=== PATIENT | male | born 1935 | race African-American/Black ===

== ENCOUNTER 2017-08-24 18:14 | Emergency (ER) | payer MEDICARE ==
[~2017-08-24] VITALS: Ht 182.9 cm; Wt 77.1 kg
[2017-08-24 18:25] VITALS: BP 139/72
[2017-08-24] MEDS ORDERED: Sodium Chloride 500ML 500 ML IV ONE (18:31)
[2017-08-24] MEDS ORDERED: Morphine Sulfate 4mg/ml Inj IVP ONE ×2 (19:00→21:15)
[2017-08-24 19:04] VITALS: BP 133/79
[2017-08-24] MEDS ORDERED: FAMOTIDINE40 MG ORAL (19:04)
[2017-08-24] MEDS ORDERED: LISINOPRIL1 GM MC (19:04)
[2017-08-24] MEDS ORDERED: MEGESTROL ACETAT5 GM MC (19:04)
[2017-08-24] MEDS ORDERED: ZOFRAN4 MG ORAL (19:04)
[2017-08-24] MEDS ORDERED: GABAPENTIN100 MG ORAL (19:04)
--- NOTE | 2017-08-24 19:08 | Emergency Room Report ---
History of Present Illness General Chief Complaint: Abdominal Pain Source: Patient, Family Member, EMS Present Illness HPI Patient initially comes in for complaints of vomiting or abdominal pain Patient's grandson is here as well Reports that the patient has also had diffuse pain Patient was also reported to have had a fall earlier Patient appeared to be weaker than usual unknown regarding fever patient himself is a Poor historian and grandson provide some history Patient points to the chest area down to the lower abdomen for the discomfort No reports of diarrhea History of present illness remains limited Allergies: Coded Allergies: No Known Allergies (Unverified , 08/24/17) Patient History Limited by: medical condition Past Medical History: see triage record Past Surgical History: unable to obtain Reviewed Nursing Documentation: PMH: Agreed; PSxH: Agreed Nursing Documentation-PMH Past Medical History: No History, Except For Review of Systems All Other Systems: limited - Other than the ones mentioned in the history of present illness all others are reviewed however they do stay limited due to the patient's mental status Physical Exam Vital Signs Date Time Temp Pulse Resp B/P (MAP) Pulse Ox O2 Delivery O2 Flow Rate FiO2 08/24/17 18:11 97.4 102 16 147/96 98 97.3 08/24/17 19:04 Room Air Sp02 EP Interpretation: reviewed, normal General Appearance: no apparent distress Head: normocephalic, atraumatic Eyes: bilateral eye PERRL ENT: normal pharynx, dry mucus membranes Neck: supple, thyroid normal Respiratory: crackles - Both lower lobes Cardiovascular #1: regular rate, rhythm, no edema Gastrointestinal: non tender, soft Musculoskeletal: normal inspection Neurologic: alert, responsive - However appears mildly confused Skin: other - Mild jaundice and pallor noted Medical Decision Making Diagnostic Impression: Primary Impression: MDS (myelodysplastic syndrome) Additional Impressions: Thrombocytopenia Chemotherapy adverse reaction ER Course Given the patient's presentation extensive blood work and imaging was initiated CT abdomen pelvis does not show any obvious acute pathology in discussion with [facility] physician Patient has history of MDS Previous white blood for count was 40,000 Previous platelets were 22,000 Patient also did have 10 bandemia Given the worsening symptoms patient is initiated on broad-spectrum antibiotic patient also has metastatic colon cancer Requiring further inpatient care Labs Test 08/24/17 19:16 White Blood Count 70.4 K/UL (4.8-10.8) Red Blood Count 2.62 M/UL (4.70-6.10) Hemoglobin 7.9 G/DL (14.2-18.0) Hematocrit 24.5 % (42.0-52.0) Mean Corpuscular Volume 94 FL (80-99) Mean Corpuscular Hemoglobin 30.4 PG (27.0-31.0) Mean Corpuscular Hemoglobin Concent 32.4 G/DL (32.0-36.0) Red Cell Distribution Width 18.2 % (11.6-14.8) Platelet Count 14 K/UL (150-450) Mean Platelet Volume 11.8 FL (6.5-10.1) Neutrophils (%) (Auto) % (45.0-75.0) Lymphocytes (%) (Auto) % (20.0-45.0) Monocytes (%) (Auto) % (1.0-10.0) Eosinophils (%) (Auto) % (0.0-3.0) Basophils (%) (Auto) % (0.0-2.0) Differential Total Cells Counted 100 Neutrophils % (Manual) 46 % (45-75) Lymphocytes % (Manual) 22 % (20-45) Monocytes % (Manual) 8 % (1-10) Eosinophils % (Manual) 0 % (0-3) Basophils % (Manual) 0 % (0-2) Band Neutrophils 24 % (0-8) Other Cell Type Platelet Estimate Decreased Platelet Morphology Normal Hypochromasia 1+ Anisocytosis 1+ Sodium Level 139 MMOL/L (136-145) Potassium Level 4.3 MMOL/L (3.5-5.1) Chloride Level 103 MMOL/L (98-107) Carbon Dioxide Level 24 MMOL/L (21-32) Anion Gap 12 mmol/L (5-15) Blood Urea Nitrogen 32 mg/dL (7-18) Creatinine 1.5 MG/DL (0.55-1.30) Estimat Glomerular Filtration Rate mL/min (>60) Glucose Level 149 MG/DL (74-106) Calcium Level 9.6 MG/DL (8.5-10.1) Total Bilirubin 0.8 MG/DL (0.2-1.0) Aspartate Amino Transf (AST/SGOT) 71 U/L (15-37) Alanine Aminotransferase (ALT/SGPT) 21 U/L (12-78) Alkaline Phosphatase 80 U/L (46-116) Total Creatine Kinase 373 U/L (26-308) Creatine Kinase MB < 0.5 NG/ML (0.0-3.6) Creatine Kinase MB Relative Index 0.1 Troponin I 0.059 ng/mL (0.000-0.056) Total Protein 8.8 G/DL (6.4-8.2) Albumin 3.9 G/DL (3.4-5.0) Globulin 4.9 g/dL Albumin/Globulin Ratio 0.8 (1.0-2.7) Lipase 56 U/L (73-393) Rhythm Strip Diag. Results EP Interpretation: yes Rate: 67 Rhythm: NSR, no PVC's, no ectopy Chest X-Ray Diagnostic Results Chest X-Ray Diagnostic Results : Chest X-Ray Ordered: Yes # of Views/Limited/Complete: 1 View Indication: Chest Pain EP Interpretation: Yes Interpretation: no consolidation, no effusion, no pneumothorax Impression: No acute disease Electronically Signed by: Brit Burr DO Other X-Ray Diagnostic Results Other X-Ray Diagnostic Results : X-Ray ordered: Right knee # of Views/Limited Vs Complete: 3 View Indication: Pain EP Interpretation: Yes Interpretation: no dislocation, no soft tissue swelling, no fractures Impression: No acute disease Electronically Signed by: Brit Burr DO CT/MRI/US Diagnostic Results CT/MRI/US Diagnostic Results : Impression CT abdomen pelvisImpression: Multiple liver masses, largest measuring 10.8 x 9.8 x 9 cm. Given the presence of calcifications some of these, these most likely represent metastatic neoplasm, likely adenocarcinoma. Multiple abscesses also a possibility but much less likely Other subcentimeter low-attenuation lesions are seen in the liver, too small to characterize 3.8 x 3.8 cm saccular infrarenal abdominal aortic aneurysm. No evidence of leakage or rupture Evidence of multiple prior surgeries, with evidence of abdominal wall hernia mesh repair and sigmoid resection Colonic diverticulosis. No evidence of diverticulitis Equivocal gastric antral wall thickening, most likely artifact of under distention. Gastritis, peptic ulcer disease, or neoplasm also possible The included lung bases demonstrate COPD changes. Nodular opacities most likely represent areas of scarring, although a few small groundglass opacities are nonspecific Prostatomegaly. 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
[2017-08-24 19:10] VITALS: BP 136/73
[2017-08-24 19:45] LABS: ANION GAP 12 mmol/L (5-15); BLOOD UREA NITROGEN 32 mg/dL (7-18); CALCIUM 9.6 MG/DL (8.5-10.1); CARBON DIOXIDE 24 MMOL/L (21-32); CHLORIDE 103 MMOL/L (98-107); CREATININE 1.5 MG/DL (0.55-1.30); HEMATOCRIT 24.5 % (42.0-52.0); HEMOGLOBIN 7.9 G/DL (14.2-18.0); MEAN CORPUSCULAR VOLUME 94 FL (80-99); PLATELET COUNT 14 K/UL (150-450); POTASSIUM 4.3 MMOL/L (3.5-5.1); RED BLOOD COUNT 2.62 M/UL (4.70-6.10); RED CELL DISTRIBUTION WIDTH 18.2 % (11.6-14.8); SODIUM 139 MMOL/L (136-145)
[2017-08-24] MEDS ORDERED: HYDROCODON-ACE1 EA15 ORAL (19:45)
[2017-08-24] MEDS ORDERED: LISINOPRIL40 MG ORAL (19:45)
[2017-08-24] MEDS ORDERED: MEGESTROL ACETA40 MG PO (19:46)
[2017-08-24 19:58] LABS: ALANINE AMINOTRANSFERASE 21 U/L (12-78); ALBUMIN 3.9 G/DL (3.4-5.0); ALBUMIN/GLOBULIN RATIO 0.8 (1.0-2.7); ALKALINE PHOSPHATASE 80 U/L (46-116); ASPARTATE AMINO TRANSFERASE 71 U/L (15-37); BILIRUBIN,TOTAL 0.8 MG/DL (0.2-1.0); CKMB < 0.5 NG/ML (0.0-3.6); CREATINE KINASE 373 U/L (26-308)
[2017-08-24 20:05] VITALS: BP 130/80
[2017-08-24 20:10] LABS: WHITE BLOOD COUNT 70.4 K/UL (4.8-10.8)
[2017-08-24] MEDS ORDERED: Piperacillin/Tazobactam 3.375 GM in NS 110 ML IVPB ONE (21:00)
[2017-08-24 23:03] VITALS: BP 131/67
[2017-08-25 03:18] VITALS: BP 131/67
--- NOTE | 2017-08-25 12:15 | Diagnostic Imaging Report ---
Indication: Nor bilateral abdominal pain x2 3 days with nausea and vomiting Technique: Spiral acquisitions obtained through the abdomen and pelvis. No oral contrast utilized, per emergency room physician request No IV contrast utilized, per referring physician request.. Multiplanar reconstructions were generated. Total dose length product 559.1 mGycm. CTDIvol(s) 10.65 mGy. Dose reduction achieved using automated exposure control Comparison: None Findings: In the inferior right hepatic lobe, there is a low-attenuation mass which measures 10.8 x 9.8 x 9 cm in diameter. This appears to extend to the liver surface. There is a capsular calcification at the inferior extent. A second smaller mass is immediately adjacent to the superolateral aspect of this, measures 2.2 cm in diameter, demonstrates some peripheral calcification. A third mass with calcifications is seen in the lateral dome of segment 7, measures 2.2 cm, but has a testicle of low-attenuation calcification extending medially. A fourth similar lesion is seen in the tip of segment 2 of the left hepatic lobe, measuring 3 x 4.6 cm. These are not optimally characterize, due to lack of IV contrast. Numerous subcentimeter low-attenuation lesions are also seen within the cephalad portions of the liver. These are not optimally characterized due to small size. Lack of IV contrast limits assessment of the solid organs. The gallbladder, bile ducts, pancreas are unremarkable. Spleen demonstrates numerous calcifications, consistent with old granulomatous disease. The adrenals are unremarkable. The kidneys demonstrate multiple cysts, as well as multiple subcentimeter low-attenuation lesions which are too small to characterize. No retroperitoneal or mesenteric mass or adenopathy. No pelvic mass or adenopathy. The prostate is somewhat enlarged, measuring 4.5 x 4.5 x 6.5 cm. The bladder is distended. There is a saccular infrarenal abdominal aortic aneurysm, which measures 3.8 x 3.8 cm, measures 4 cm in length. No evidence of leakage or rupture. There is colonic diverticulosis. There is evidence of prior sigmoid resection and anastomosis. The cecum is ectopically located anterior to the left hepatic lobe although there does not appear to be any volvulus. There is a portion of small bowel that is between the right hepatic lobe and the abdominal wall. No definite small bowel distention, however. The appendix is not definitely demonstrated, but no findings to suggest acute appendicitis are evident. There is evidence of prior anterior abdominal wall hernia mesh repair. No free or loculated intraperitoneal air or fluid is evident. The distal esophagus and duodenum are unremarkable. There is equivocal mild wall thickening of the gastric antrum, probably an artifact of under distention. There is a small fat-containing left inguinal hernia. The lung bases demonstrate some bronchiectasis, small bullae, and suggestion of hyperinflation as well as areas of scarring. Some nodular opacities are noted which most likely represent areas of scarring. A few small groundglass opacities are present bilaterally which are nonspecific. There is a small pericardial effusion. The bones demonstrate degenerative spondylosis changes. Impression: Multiple liver masses, largest measuring 10.8 x 9.8 x 9 cm. Given the presence of calcifications some of these, these most likely represent metastatic neoplasm, likely adenocarcinoma. Multiple abscesses also a possibility but much less likely Other subcentimeter low-attenuation lesions are seen in the liver, too small to characterize 3.8 x 3.8 cm saccular infrarenal abdominal aortic aneurysm. No evidence of leakage or rupture Evidence of multiple prior surgeries, with evidence of abdominal wall hernia mesh repair and sigmoid resection Colonic diverticulosis. No evidence of diverticulitis Equivocal gastric antral wall thickening, most likely artifact of under distention. Gastritis, peptic ulcer disease, or neoplasm also possible The included lung bases demonstrate COPD changes. Nodular opacities most likely represent areas of scarring, although a few small groundglass opacities are nonspecific Prostatomegaly. Distended bladder Other findings as noted, including small fat-containing left inguinal hernia, degenerative spondylosis, evidence of old granulomatous disease within the spleen and liver capsule, small pericardial effusion This agrees with the preliminary interpretation provided [facility]. The CT scanner at [facility] is accredited by the [employer] and the scans are performed using protocols designed to limit radiation exposure to as low as reasonably achievable to attain images of sufficient resolution adequate for diagnostic evaluation.
--- NOTE | 2017-08-25 12:16 | Diagnostic Imaging Report ---
Indication: Chest pain Technique: One view of the chest Comparison: none Findings: No acute infiltrates, effusions, or congestion. Tortuous calcified aorta. Normal heart size. Upper mediastinum unremarkable. Impression: No acute process.
--- NOTE | 2017-08-25 12:24 | Diagnostic Imaging Report ---
Indication: Knee pain Technique: 3 views of the left knee Comparison: None Findings: No suprapatellar effusion. No acute fractures. No dislocations. The joint spaces are preserved Impression: Negative
--- NOTE | 2017-08-26 07:11 | Cardiology Report ---
APPROVED REPORT EKG Measurement Heart [id number] NV [id number] Sinus rhythm with short NV Otherwise normal ECG
== END 2017-08-24 23:10 | disposition home or self-care (01) ==
LOC: EDBD 18:14 → EMR 18:49
DX: D46.9 Myelodysplastic syndrome, unspecified (principal); D69.59 Other secondary thrombocytopenia
CPT/HCPCS: 36415; 71045; 73562; 74176; 80053; 82550; 82553; 83690; 84484; 85007; 85025; 85060; 93005; 96360; 96361; 96374; 96375; 99285; J2270; J2405; J2543; J7040